=== PATIENT | female | born 2000 | race African-American/Black ===

== ENCOUNTER 2021-02-27 07:42 | Emergency (ER) | payer OTHER ==
[~2021-02-27] VITALS: Ht 180.3 cm; Wt 172.7 kg
[2021-02-27 07:58] VITALS: BP 152/77
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
== END 2021-02-27 10:03 | disposition home or self-care (01) ==
LOC: ER 07:42
DX: M54.2 Cervicalgia (principal); R51.9 Headache, unspecified; R07.89 Other chest pain; V49.59XA Passenger injured in collision with other motor vehicles in traffic accident, initial encounter; Y93.89 Activity, other specified; Y92.488 Other paved roadways as the place of occurrence of the external cause; Y99.8 Other external cause status
CPT/HCPCS: 70450; 71045; 72125; 99285-25